=== PATIENT | male | born 1945 ===

== ENCOUNTER 2016-09-04 13:24 | Emergency (ER) | payer MEDICARE ==
[2016-09-04] MEDS ORDERED: TORADOL IV ONE (14:05)
[2016-09-04] MEDS ORDERED: NACL 0.9% 1000 ML 1,000 ML IV ONE (14:05)
[2016-09-04 14:44] LABS: Basophils % (Auto) 0.5 % (0.0-1.8); Eosinophils % (Auto) 3.1 % (0.0-4.3); Hematocrit 35.2 % (35.5-45.6); Hemoglobin 11.6 gm/dl (11.8-15.2); Mean Corpuscular HGB Conc 33 % (32-34); Mean Corpuscular Hemoglobin 31 pg (28-32); Mean Corpuscular Volume 93 fl (84-94); Platelet Count 295 K/mm3 (140-440); Red Blood Count 3.77 M/mm3 (3.65-5.03); Red Cell Distribution Width 13.7 % (13.2-15.2); White Blood Count 10.4 K/mm3 (4.5-11.0)
[2016-09-04 14:44] LABS: Bacteria,Urine 1+ /HPF (Negative); Bilirubin,Urine NEG (Negative); Blood,Urine NEG (Negative); Ketones,Urine NEG (Negative); Leukocyte Esterase,Urine NEG (Negative); Mucus,Urine FEW /HPF; Nitrite,Urine NEG (Negative); Protein,Urine <15 mg/dL mg/dL (Negative); Urobilinogen,Urine < 2.0 mg/dL (<2.0)
[2016-09-04 14:52] LABS: Alanine Aminotransferase 23 units/L (7-56); Albumin 4.1 g/dL (3.9-5); Albumin/Globulin Ratio 1.2 %; BUN/Creatinine Ratio 32.66; Blood Urea Nitrogen 49 mg/dL (9-20); Calcium 9.5 mg/dL (8.4-10.2); Carbon Dioxide 22 mmol/L (22-30); Glucose 110 mg/dL (75-100); Lipase 55 units/L (13-60); Total Protein 7.6 g/dL (6.3-8.2)
[2016-09-04 14:53] LABS: Anion Gap 20 mmol/L; Chloride 104.6 mmol/L (98-107); Potassium 5.9 mmol/L (3.6-5.0); Sodium 141 mmol/L (137-145)
[2016-09-04 14:56] LABS: INR 1.09 (0.87-1.13)
[2016-09-04 15:07] LABS: Bilirubin,Direct < 0.2 mg/dL (0-0.2)
[2016-09-04 15:16] LABS: Alkaline Phosphatase 51 units/L (35-129)
--- NOTE | 2016-09-04 15:22 | Emergency Department Report ---
ED Abdominal Pain HPI - General Chief Complaint: Abdominal Pain Stated Complaint: LT KIDNEY PAIN/BLOOD IN URINE Time Seen by Provider: 09/04/16 14:05 Source: EMS Mode of arrival: Stretcher Limitations: Language Barrier - History of Present Illness MD Complaint: flank pain -: Sudden Location: LUQ Radiation: epigastric Migration to: no migration Severity: moderate Severity scale (0 -10): 5 Quality: stabbing Consistency: constant Improves With: nothing Worsens With: nothing Associated Symptoms: denies: nausea, vomiting, chills, constipation, dysuria, melena, hematuria, anorexia - Related Data Previous Rx's Medication Instructions Recorded Last Taken Type Diclofenac Sodium 75 mg PO BID #20 tablet. 09/04/16 Unknown Rx Allergies Allergy/AdvReac Type Severity Reaction Status Date / Time No Known Allergies Allergy Verified 08/12/16 23:18 ED Review of Systems ROS: Stated complaint: LT KIDNEY PAIN/BLOOD IN URINE Other details as noted in HPI Comment: All other systems reviewed and negative Constitutional: denies: chills, fever Eyes: denies: eye pain, eye discharge, vision change ENT: denies: ear pain, throat pain Respiratory: denies: cough, shortness of breath, wheezing Cardiovascular: denies: chest pain, palpitations Endocrine: no symptoms reported Gastrointestinal: denies: abdominal pain, nausea, diarrhea Genitourinary: denies: urgency, dysuria Musculoskeletal: denies: back pain, joint swelling, arthralgia Skin: denies: rash, lesions Neurological: denies: headache, weakness, paresthesias Psychiatric: denies: anxiety, depression Hematological/Lymphatic: denies: easy bleeding, easy bruising ED Past Medical Hx - Past Medical History Hx Hypertension: Yes Hx CVA: Yes (05/2016) Hx Heart Attack/AMI: No Hx Congestive Heart Failure: No Hx Diabetes: Yes Hx Deep Vein Thrombosis: No Hx Liver Disease: No Hx Sickle Cell Disease: No Hx Arthritis: No Hx Seizures: No Hx Dementia: No Hx HIV: No Additional medical history: neuropathy - Surgical History Hx Coronary Stent: No Hx Pacemaker: No Hx Internal Defibrillator: No - Social History Smoking Status: Never Smoker - Medications Home Medications: Home Medications Medication Instructions Recorded Confirmed Last Taken Type Diclofenac Sodium 75 mg PO BID #20 tablet. 09/04/16 Unknown Rx ED Physical Exam - General Limitations: Language Barrier General appearance: alert, in no apparent distress - Head Head exam: Present: atraumatic, normocephalic - Eye Eye exam: Present: normal appearance - ENT ENT exam: Present: mucous membranes moist - Neck Neck exam: Present: normal inspection - Respiratory Respiratory exam: Present: normal lung sounds bilaterally. Absent: respiratory distress - Cardiovascular Cardiovascular Exam: Present: regular rate, normal rhythm. Absent: systolic murmur, diastolic murmur, rubs, gallop - GI/Abdominal GI/Abdominal exam: Present: soft, tenderness, normal bowel sounds. Absent: distended, guarding, rebound, hypoactive bowel sounds, organomegaly, mass, pulsatile mass - Rectal Rectal exam: Present: deferred, normal inspection - exam: Present: normal inspection - Extremities Exam Extremities exam: Present: normal inspection - Back Exam Back exam: Present: normal inspection, full ROM, CVA tenderness (R), muscle spasm. Absent: CVA tenderness (L), paraspinal tenderness, vertebral tenderness - Neurological Exam Neurological exam: Present: alert, oriented X3 - Psychiatric Psychiatric exam: Present: normal affect, normal mood - Skin Skin exam: Present: warm, dry, intact, normal color. Absent: rash ED Course Vital Signs 09/04/16 09/04/16 13:41 15:18 Temperature 97.6 F Pulse Rate 78 Respiratory 16 20 Rate Blood Pressure 126/68 O2 Sat by Pulse 98 Oximetry ED Medical Decision Making - Lab Data Result diagrams: 09/04/16 14:22 09/04/16 14:22 - Medical Decision Making In the emergency room with no pain at this point Sensation to 1 mm stone in the UV U cane in the right side is normal size of any hydronephrosis and we'll discharge with follow-up with urology was medicated for pain Critical care attestation.: If time is entered above; I have spent that time in minutes in the direct care of this critically ill patient, excluding procedure time. ED Disposition Clinical Impression: Kidney stone Disposition: DISCHARGED TO HOME OR SELFCARE Is pt being admited?: No Does the pt Need Aspirin: No Condition: Fair Instructions: Renal Colic (ED) Prescriptions: Diclofenac Sodium 75 mg PO BID #20 tablet. Referrals: PRIMARY CARE, [Primary Care Provider] - 3-5 Days Time of Disposition: 17:13
--- NOTE | 2016-09-04 15:39 | Cat Scan Report ---
FINAL REPORT EXAM: CT ABDOMEN PELVIS WO CON HISTORY: Abdominal Pain TECHNIQUE: CT of the abdomen and pelvis was performed without intravenous contrast. Reconstructions were included in the coronal and sagittal planes. PRIORS: None. FINDINGS: Lower thorax: The lung bases are clear. Coronary artery calcifications are seen. Liver: The liver is normal in attenuation. No intrahepatic biliary duct dilation. No focal hepatic lesions. Gallbladder/ biliary system: Cholelithiasis is seen. The fundus of the gallbladder appears contracted around the gallstones. No gallbladder wall thickening or pericholecystic fluid. The common bile duct appears nondilated. Spleen: A calcified splenic granuloma is seen. Pancreas: No pancreatic lesions are seen. No pancreatic duct dilation. Kidneys: Several simple right renal cysts are seen. Punctate calculi are seen in the inferior pole of the right kidney. There is a staghorn type calculus in the inferior pole of the left kidney measuring 2.5 centimeters. No ureteral calculi. No hydronephrosis. Adrenal glands: No adrenal masses. Vasculature: The abdominal aorta is nondilated. Atherosclerotic calcifications are seen in the abdominal aorta. Lymph nodes: No enlarged lymph nodes are seen in the abdomen or pelvis. Bowel, mesentery, peritoneum: No bowel obstruction. No free fluid or free air. The appendix is normal. No colonic diverticulosis. No bowel wall thickening. Urinary bladder: No filling defects are seen. Pelvis: Normal anatomy is noted. No masses. Abdominal wall: Bilateral fat containing inguinal hernias are seen. Bones: Degenerative changes are seen in the spine. IMPRESSION: 1. Staghorn calculus in the inferior pole of the left kidney. Punctate nonobstructing right renal calculi. No obstructing ureteral calculi. 2. Cholelithiasis without evidence of acute cholecystitis. 3. Bilateral fat containing inguinal hernias. 4. Several simple right renal cysts.
[2016-09-04 18:41] VITALS: BP 136/77
== END 2016-09-04 18:40 | disposition home or self-care (01) ==
LOC: ED 13:24
DX: N20.0 Calculus of kidney (principal); Z86.73 Personal history of transient ischemic attack (TIA), and cerebral infarction without residual deficits; E11.9 Type 2 diabetes mellitus without complications; G62.9 Polyneuropathy, unspecified
CPT/HCPCS: 36415; 74176; 80048; 80074; 81001; 83690; 85025; 85610; 96361; 96374; 99284; J1885; J7030